=== PATIENT | male | born 1970 | race Caucasian/White ===

== ENCOUNTER 2017-02-01 10:46 | Emergency (ER) | payer OTHER ==
--- NOTE | 2017-02-01 11:06 | ED Physician Documentation ---
Abscess - HPI Stated Complaint: bite and skin concern Chief Complaint: Skin Rash Onset: days ago (3) Timing: still present Duration: persistent since Location: other (swelling on back of right leg ) Identified Cause?: Yes (insect bite ) When Did Symptoms Start: 01/31/17 Where: other ([facility]) Context: Medication Exposure: antibiotic Context: Food Exposure: none Context: Other Exposure: other (insect ) Further Comments: no - ROS CONST: none CVS/RESP: none GI/: none MS/SKIN/LYMPH: other (mild lump where insect had bite and redness ) NEURO/PSYCH: none - PAST HX Past History: other (AL in 2009 he had stents placed ) Surgeries/Procedures: Yes (Stent Placement 2009 ) Immunizations: referred to PCP - SOCIAL HX Smoking History: non-smoker Alcohol Use: none Drug Use: none - FAMILY HX Family History: none - REVIEWED ASSESSMENTS Nursing Assessment Reviewed: Yes Vitals Reviewed: Yes - HPI Additional Information: He states that yesterday he was started on Bactrim for a skin area of concern. He had a bite that was red and growing in size. denies fever. He does have some pain in the area and he feels at times this might be making his knee sore (Archana Sauer) - PAST HX Allergies/Adverse Reactions: Allergies Allergy/AdvReac Type Severity Reaction Status Date / Time No Known Allergies Allergy Unverified 02/01/17 11:12 Home Medications: Ambulatory Orders Medication Instructions Recorded Atorvastatin Calcium [Lipitor] 20 mg PO HS 02/01/17 Pantoprazole Sodium [Protonix] 40 mg PO DAILY 02/01/17 Paroxetine HCl [Paxil] 40 mg PO DAILY 02/01/17 Sucralfate [Carafate] 1 gm PO ACHS 02/01/17 Ticagrelor [Brilinta] 90 mg PO BID 02/01/17 - VITAL SIGNS Vital Signs: Vital Signs Temp Pulse Resp BP Pulse Ox 97.7 F 96 H 18 115/75 98 02/01/17 11:22 02/01/17 11:22 02/01/17 11:22 02/01/17 11:22 02/01/17 11:22 Progress - Progress Progress: I have discussed patient with nurse practioner and agree with assessment and treatment plan. (Ayan Lim) Abscess Physical Exam - EXAM General Appearance: no acute distress Skin: other (right leg with small dime sized red mildy inflammed area no drainge , no streaking, mild pain wiht palpation, Pulses + cap refill + FROM of knee and foot ) Character: No: papular, maculopapular, vesicular, bullous Symptoms: warmth, tenderness, swelling Extremities: non-tender Respiratory: no resp distress, chest non-tender CVS: reg. rate & rhythm, heart sounds nml Neuro/Psych: oriented x3, CN's nml as tested, motor nml Discharge Decision to Admit: NO Date of Decison to Admit: 02/01/17 Decision Time: 11:17 Clincal Impression: Insect bite Qualifiers: Encounter type: initial encounter Qualified Code(s): W57.XXXA - Bitten or stung by nonvenomous insect and other nonvenomous arthropods, initial encounter Referrals: Primary Doctor,No [Primary Care Provider] - 2 Days Additional Instructions: use a warm pain and move leg regularly Any change in symptoms return Disposition: 01 HOME, SELF-CARE
[2017-02-01 11:13] VITALS: BP 115/75
== END 2017-02-01 11:22 | disposition home or self-care (01) ==
LOC: ED 10:46
DX: R21 Rash and other nonspecific skin eruption (principal); W57.XXXA Bitten or stung by nonvenomous insect and other nonvenomous arthropods, initial encounter; Y93.9 Activity, unspecified; Y99.9 Unspecified external cause status
CPT/HCPCS: 99283